=== PATIENT | male | born 1995 | race African-American/Black ===

== ENCOUNTER 2017-05-21 15:05 | Emergency (ER) | payer OTHER ==
[~2017-05-21] VITALS: Ht 165.1 cm; Wt 63.5 kg
[~2017-05-21 15:05] MED LIST: LEVSIN0.125 MG PO; PREDNISONE 20MG20 MG PO
[2017-05-21 15:14] VITALS: BP 128/88
[2017-05-21] MEDS ORDERED: IBUPROFEN600 M1 PO (15:50)
[2017-05-21] MEDS ORDERED: TAMIFLU75 M1 PO (15:50)
--- NOTE | 2017-05-21 15:51 | ED INFLUENZA/URI COMPLAINT ---
History of Present Illness General Chief Complaint: Upper Respiratory Sx/Fever Stated Complaint: COUGH,ABD PAIN AND HEADACHE SINCE TUESDAY Source: patient Exam Limitations: no limitations Vital Signs & Intake/Output Vital Signs & Intake/Output Vital Signs Date Time Temp Pulse Resp B/P B/P Pulse O2 O2 Flow FiO2 Mean Ox Delivery Rate 05/21 1550 100.1 05/21 1514 100.1 91 18 128/88 97 Room Air ED Intake and Output 05/22 0000 05/21 1200 Intake Total 0 Output Total Balance 0 Intake, Oral 0 Patient 140 lb Weight Weight Reported by Patient Measurement Method Allergies Coded Allergies: NO KNOWN ALLERGIES (01/01/16) Reconcile Medications Escitalopram Oxalate 10 MG TABLET 1 TAB PO DAILY ANXIETY (Reported) Ibuprofen 600 MG TABLET 1 TAB PO Q6H PRN pain/fever with food Mirtazapine 15 MG TABLET 1 TAB PO QPM SEEP (Reported) Oseltamivir Phosphate (Tamiflu) 75 MG CAPSULE 1 CAP PO BID flu b Triage Note: C/O HEADACHE, BODY ACHES, COUGH AND SORE THROAT X 2 DAYS. Triage Nurses Notes Reviewed? yes Onset: Abrupt Duration: day(s): (3), constant, continues in ED Timing: single episode today Severity: mild, moderate Prior Episodes/Possible Cause: no prior episodes No Modifying Factors: none Associated Symptoms: cough, fever/chills, headache, muscle aches, nasal congestion, nasal drainage, sore throat HPI: 21-year-old male with no past medical history presents for evaluation of cough, congestion, rhinorrhea, sore throat, body aches and fever. Patient states symptoms started about 3 days ago and been persistent. He reports cough productive of clear sputum. Sinus pressure fever. He's been taking DayQuil with only mild improvement. He denies any shortness of breath nausea vomiting diarrhea abdominal pain. No sick contacts. He is vaccinated. No recent travel. No chest pain. He has been able to eat and drink. (Philipp Ortega) Past History Travel History Traveled to [place] past 21 day No Medical History Any Pertinent Medical History? 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 No (Philipp Ortega) Review of Systems Review of Systems Constitutional: Reports: see HPI, chills, fever, malaise, weakness. EENTM: Reports: nasal congestion, throat pain. Respiratory: Reports: see HPI, cough. Cardiovascular: Reports: no symptoms. GI: Reports: no symptoms. Genitourinary: Reports: no symptoms. Musculoskeletal: Reports: see HPI, back pain, muscle pain, muscle stiffness. Skin: Reports: no symptoms. Neurological/Psychological: Reports: no symptoms. Hematologic/Endocrine: Reports: no symptoms. Immunologic/Allergic: Reports: no symptoms. All Other Systems: Reviewed and Negative (Philipp Ortega) Physical Exam Physical Exam General Appearance: well developed/nourished, no apparent distress, alert, awake Head: atraumatic, normal appearance Eyes: Bilateral: normal appearance, PERRL, EOMI. Ears, Nose, Throat: moist mucous membrane, hearing grossly normal, Tympanic normal, pharynx normal, nasal congestion, nasal drainage (CLEAR) Neck: normal inspection, supple, full range of motion Respiratory: normal breath sounds, chest non-tender, no respiratory distress, lungs clear Cardiovascular: regular rate/rhythm, normal peripheral pulses Peripheral Pulses: 2+ radial (R), 2+ radial (L) Gastrointestinal: soft, non-tender Back: normal inspection Extremities: normal inspection, normal range of motion, no edema Neurologic/Psych: no motor/sensory deficits, awake, alert, oriented x 3 Skin: intact, normal color, warm/dry Core Measures Sepsis Present: No Sepsis Focused Exam Completed? No (Philipp Ortega) Progress Differential Diagnosis: influenza, otitis, pneumonia, pharyngitis, sinusitis Plan of Care: Orders Procedure Date/time Status RAPID VIRAL INFLUENZA A 05/21 1515 Complete VIRAL CULTURE 05/21 1515 Active Laboratory Tests 05/21/17 1515: Virus Culture Pending Microbiology 05/21 1522 NASOPHARYN: Influenza Virus A & B Rapid Smear - COMP INFLUENZA TYPE B Patient seen and evaluated. Influenza testing is positive. No signs of bacterial infection on exam. He has a low-grade temp is medicated with ibuprofen here. Rest and fluids and alternate Tylenol or Profen. Tamiflu. Discussed return precautions. Patient agrees the plan. Initial ED EKG: none (Philipp Ortega) Departure Departure Disposition: HOME OR SELF CARE Condition: Stable Clinical Impression Primary Impression: Influenza B Referrals: Doyle POWELL,Claudy Velez (PCP/Family) Additional Instructions: Rest and drink plenty of fluids. Take Tamiflu as directed for the full course. Alternate between Tylenol 1000 mg and ibuprofen 600 mg every 6 hours for fever and pain. Mucinex for cough. Zantac for acid reflux. Make a follow-up appointment with your primary care doctor for this coming week. Monitor symptoms closely return with any concerns. Departure Forms: Customer Survey General Discharge Information Prescriptions: Current Visit Scripts Oseltamivir Phosphate (Tamiflu) 1 CAP PO BID #10 CAP Ibuprofen 1 TAB PO Q6H PRN pain/fever #30 TAB with food (Philipp Ortega) PA/ARCHITECTURAL JOB CAPTAIN Co-Sign Statement Statement: ED Attending supervision documentation- I saw and evaluated the patient. I have also reviewed all the pertinent lab results and diagnostic results. I agree with the findings and the plan of care as documented in the PA's/ARCHITECTURAL JOB CAPTAIN's documentation. x I have reviewed the ED Record and agree with the PA's/ARCHITECTURAL JOB CAPTAIN's documentation. [] Additions or exceptions (if any) to the PAs/ARCHITECTURAL JOB CAPTAIN's note and plan are summarized below: [] (Yi POWELL,Norman)
[2017-05-21] MEDS ORDERED: MIRTAZAPINE15 M2 PO (15:54)
[2017-05-21] MEDS ORDERED: ESCITALOPRAM OX10 MG PO (15:54)
== END 2017-05-21 15:54 ==
LOC: ERH 15:05
DX: J10.1 Influenza due to other identified influenza virus with other respiratory manifestations (principal)
CPT/HCPCS: 87804; 87804-59